=== PATIENT | female | born 1950 | race Caucasian/White ===

== ENCOUNTER → 2024-09-27 10:50 | Outpatient (BNVA) | payer SELFPAY | PROVIDERS: Visit Provider Internal Medicine | DX: E11.9 Type 2 diabetes mellitus without complications (principal) | CPT/HCPCS: 80053; 80061; 82044; 83036 ==

== ENCOUNTER → 2025-04-08 14:09 | Outpatient (BNVA) | payer SELFPAY | PROVIDERS: Visit Provider Internal Medicine Cardiovascular Disease | DX: R07.9 Chest pain, unspecified (principal) | CPT/HCPCS: 93005 ==

== ENCOUNTER 2025-04-11 13:21 | Outpatient (CLI) | payer SELFPAY ==
--- NOTE | 2025-04-11 13:30 | USCV_ITS ---
Camelia Adair Age: 74 Gender: F : 1950 Exam Date: 04/11/2025 13:53 Ordering Phys: Benito Sheikh MD ([email or web address]) Technologist: LAVERNE Exam Location: [facility] [place] Indication: chest pain, sob BP: 152 / 88 HR: 95 Rhythm: Sinus Technical Quality: Adequate MEASUREMENTS (Male / Female) Normal Values 2D ECHO LV Diastolic Diameter PLAX 5.3 cm 4.2 - 5.9 / 3.9 - 5.3 cm IVS Diastolic Thickness 0.8 cm 0.6 - 1.0 / 0.6 - 0.9 cm IVS Systolic Thickness 0.9 cm LVPW Diastolic Thickness 0.9 cm 0.6 - 1.0 / 0.6 - 0.9 cm LVPW Systolic Thickness 1.5 cm LVOT Diameter 2.0 cm LV Ejection Fraction 2D Teich 50.0 % LV Ejection Fraction MOD 4C 55.9 % LV Ejection Fraction MOD 2C 53.3 % LV Ejection Fraction 2C AL 54.2 % LA Diameter 3.8 cm RA Systolic Volume 4C AL 29.5 ml RA Systolic Volume 4C MOD 29.2 ml LA Sys Volume AL 44.5 cm cubed LA Sys Volume Index AL 18.6 cm cubed/m squared Aorta at Sinotubular Diameter 2.5 cm IVC Diameter 1.8 cm M-MODE LA Ao Ratio MM 1.4 AV Cusp Separation MM 1.5 cm DOPPLER AV Peak Velocity 191.0 cm/s LVOT Peak Velocity 91.0 cm/s AV Area Cont Eq vti 1.7 cm squared AV Area Cont Eq pk 1.6 cm squared MV Peak Velocity 122.0 cm/s MV Area PHT 7.2 cm squared Mitral E to A Ratio 0.4 TV Peak Velocity 268.0 cm/s TR Peak Velocity 279.0 cm/s TR Peak Gradient 31.1 mmHg TR Mean Velocity 214.0 cm/s TR Mean Gradient 19.7 mmHg TR Velocity Time Integral 55.4 cm PV Peak Velocity 87.0 cm/s RV Ejection Time 0.2 s FINDINGS Left Ventricle Normal left ventricular size, Low normal systolic function, normal wall thickness, with no regional wall motion abnormalities. Left ventricular ejection fraction is estimated at 50 %. Grade I/IV diastolic dysfunction (abnormal relaxation filling pattern), normal to mildly elevated filling pressures. Right Ventricle Normal right ventricular size. Catheter/pacemaker wire visualized in the right ventricle. Catheter/pacemaker wire visualized in the right ventricle. Right Atrium Normal right atrial size. Catheter/pacemaker wire in the right atrial cavity. Catheter/pacemaker wire in the right atrial cavity. Left Atrium Moderately increased left atrial size. IA Septum Normal appearance of the interatrial septum. Mitral Valve Moderately thickened mitral valve. Mild mitral valve stenosis. Trace mitral valve regurgitation. Aortic Valve Severe aortic valve calcification. Moderate aortic valve stenosis, mean gradient 9.1 mmHg, ALAN 1.7 cm squared. Trace aortic valve regurgitation. Tricuspid Valve Trace tricuspid valve regurgitation. Pulmonic Valve Trace pulmonary valve regurgitation. Pericardium No pericardial effusion. Aorta Normal diameter of the aortic root and ascending thoracic aorta. IVC Normal IVC diameter. CONCLUSIONS Normal left ventricular size, Low normal systolic function, normal wall thickness, with no regional wall motion abnormalities. Left ventricular ejection fraction is estimated at 50 %. Grade I/IV diastolic dysfunction (abnormal relaxation filling pattern), normal to mildly elevated filling pressures. Normal right ventricular size. Catheter/pacemaker wire visualized in the right ventricle. Catheter/pacemaker wire visualized in the right ventricle. Moderately increased left atrial size. Severe aortic valve calcification. Moderate aortic valve stenosis, mean gradient 9.1 mmHg, ALAN 1.7 cm squared. Trace aortic valve regurgitation. Trace tricuspid valve regurgitation. There is no pericardial effusion. Right atrial pressure is around 5 mm of mercury. Benito Sheikh MD (Electronically Signed) Final Date: 13 April 2025 16:13 S
== END 2025-04-11 13:22 | disposition home or self-care (01) ==
PROVIDERS: PCP Internal Medicine Cardiovascular Disease; Visit Provider Internal Medicine Cardiovascular Disease
DX: R07.9 Chest pain, unspecified (principal); R06.02 Shortness of breath; I51.89 Other ill-defined heart diseases; I35.8 Other nonrheumatic aortic valve disorders; Z96.89 Presence of other specified functional implants; I35.2 Nonrheumatic aortic (valve) stenosis with insufficiency; I36.1 Nonrheumatic tricuspid (valve) insufficiency; I51.7 Cardiomegaly
CPT/HCPCS: 93306